=== PATIENT | male | born 1960 | race African-American/Black ===

== ENCOUNTER → 2017-03-21 | Outpatient (CLI) | payer OTHER ==
[~2017-03-21] MED LIST: ANTIVERT 25MG25 MG PO; FIORICET 325 MG1 TA1; FLEXERIL 1010 MG/TAB PO; MOTRIN 800800 MG/TAB PO; NEXIUM 40MG40 MG PO; NORCO 325 MG-7.1 TAB PO; PERCOCET 325 MG1 TA2 PO; PROAIR HFA0.09 MG/AC IH; TENORMIN 2525 MG/TAB PO; ZOLOFT 25MG25 MG PO
== END ==
LOC: COL.RAD 12:53
DX: M79.604 Pain in right leg (principal); Z96.651 Presence of right artificial knee joint

== ENCOUNTER 2018-01-11 20:03 | Emergency (ER) | payer OTHER ==
[~2018-01-11] VITALS: Ht 170.2 cm; Wt 98.6 kg
[2018-01-11 20:40] VITALS: BP 131/91; TEMP 98.5
[2018-01-11 22:22] VITALS: PULSE 86
== END 2018-01-11 22:22 | disposition home or self-care (01) ==
LOC: COL.ER 20:03
DX: H61.23 Impacted cerumen, bilateral (principal); J45.909 Unspecified asthma, uncomplicated; F41.9 Anxiety disorder, unspecified; K21.9 Gastro-esophageal reflux disease without esophagitis; G43.909 Migraine, unspecified, not intractable, without status migrainosus

== ENCOUNTER 2018-08-28 16:00 | Outpatient (RCR) | payer OTHER | END 2018-10-29 09:12 | disposition home or self-care (01) | LOC: WSPT 16:00 | DX: G89.4 Chronic pain syndrome (principal) ==

== ENCOUNTER 2019-01-04 22:01 | Emergency (ER) | payer OTHER ==
[~2019-01-04] VITALS: Ht 170.2 cm; Wt 106.4 kg
[2019-01-04 22:07] VITALS: TEMP 98.3
[2019-01-04 22:39] LABS: BASO % 0.3 % (0.0-2.0); EOS # 0.2 (0.0-0.7); EOS % 1.6 % (0-4.0); GRAN % 60.2 % (42.2-75.2); HEMOGLOBIN 13.2 g/dl (13.5-18.0); LYMPH % 29.7 % (20.0-51.0); MEAN CELL VOLUME 87 fl (80.0-100.0); MEAN CORPUSCULAR HEMOGLOBIN 30 pg (27.0-31.0); MEAN CORPUSCULAR HGB CONC 34 g/dl (33.0-37.0); MONO # 0.8 (0.1-0.6); MONO % 7.7 % (1.7-9.3); PLATELET COUNT 173 K/mm3 (130-400); RED BLOOD COUNT 4.47 M/mm3 (4.20-5.60); REDCELL DISTRIBUTION WIDTH-CV 12.4 % (11.5-14.5)
[2019-01-04 22:49] LABS: ALANINE AMINOTRANSFERASE 27 U/L (21-72); ALBUMIN 3.9 gm/dL (3.5-5.0); ALKALINE PHOSPHATASE 102 U/L (50-136); ANION GAP 8 mmol/L (7-16); AST,SGOT 24 U/L (15-37); BILIRUBIN,TOTAL 0.2 mg/dL (0.0-1.0); BLOOD UREA NITROGEN 16 mg/dL (9-20); CALCIUM 9.2 mg/dL (8.4-10.2); CARBON DIOXIDE 28 mmol/L (22-30); CHLORIDE 105 mmol/L (98-107); GLUCOSE 104 mg/dL (74-106); POTASSIUM 3.9 mmol/L (3.4-5.0); SODIUM 140 mmol/L (137-145); TOTAL PROTEIN 7.2 gm/dL (6.4-8.2)
[2019-01-04 22:50] LABS: C-REACTIVE PROTEIN < 0.5 mg/dL (0.0-0.9)
[2019-01-04 23:33] LABS: COLLECTION METHOD CLEAN CATCH
[2019-01-04 23:38] LABS: PH 7 (5-8); SQUAMOUS EPITHELIAL None Seen /hpf; URINE APPEARANCE Clear; URINE BACTERIA None Seen /hpf; URINE BILIRUBIN Negative (NEGATIVE); URINE BLOOD Negative (NEGATIVE); URINE COLOR Yellow; URINE GLUCOSE Negative (NEGATIVE); URINE KETONE Negative (NEGATIVE); URINE LEUKOCYTE ESTERASE Negative (NEGATIVE); URINE NITRATE Negative (NEGATIVE); URINE PROTEIN(semi-quant) Negative (NEGATIVE); URINE RBC 0-2 /hpf; URINE UROBILINOGEN Negative (NEGATIVE)
[2019-01-05] MEDS ORDERED: ZOFRAN ODT4 MG PO (02:01)
[2019-01-05] MEDS ORDERED: LEVAQUIN 5500 MG/TA1 PO (02:01)
[2019-01-05] MEDS ORDERED: NORCO 325 MG-51 TAB PO (02:01)
[2019-01-05 02:40] VITALS: BP 148/78; PULSE 66
== END 2019-01-05 02:40 | disposition home or self-care (01) ==
LOC: COL.ER 22:01
PROVIDERS: Nurse Practitioner
DX: R10.11 Right upper quadrant pain (principal); R91.8 Other nonspecific abnormal finding of lung field; F41.9 Anxiety disorder, unspecified; F43.10 Post-traumatic stress disorder, unspecified; Z87.442 Personal history of urinary calculi; Z90.89 Acquired absence of other organs
CPT/HCPCS: J2270; J2405; J7030; Q9967

== ENCOUNTER → 2019-02-13 | Outpatient (CLI) | payer OTHER ==
[~2019-02-13] MED LIST changes: +LEVAQUIN 5500 MG/TA1 PO; +NORCO 325 MG-51 TAB PO; +ZOFRAN ODT4 MG PO
== END ==
LOC: BHSO 15:07
DX: F33.1 Major depressive disorder, recurrent, moderate (principal)

== ENCOUNTER → 2019-03-20 | Outpatient (CLI) | payer OTHER | LOC: BHSO 08:53 | DX: F43.10 Post-traumatic stress disorder, unspecified (principal) ==

== ENCOUNTER → 2019-04-16 | Outpatient (CLI) | payer OTHER | LOC: BHSO 08:38 | DX: F43.10 Post-traumatic stress disorder, unspecified (principal) ==

== ENCOUNTER → 2019-05-14 | Outpatient (CLI) | payer OTHER | LOC: BHSO 08:50 | DX: F45.0 Somatization disorder (principal) ==

== ENCOUNTER → 2019-06-11 | Outpatient (CLI) | payer OTHER | LOC: BHSO 15:55 | DX: F43.10 Post-traumatic stress disorder, unspecified (principal) ==